=== PATIENT | female | born 1935 | race Caucasian/White ===

== ENCOUNTER → 2017-02-06 | Outpatient (CLI) | payer MEDICARE, OTHER ==
[~2017-02-06] MED LIST: AMARYL4 MG PO; ATACAND 16M16 MG/TAB PO; CALCIUM + D 6001 TAB PO; CALCIUM 600 PLU1 TAB PO; CARVEDILOL25 MG PO; CHROMIUM PICO200 MC2 PO; CINNAMON500 MG PO; DIGOXIN0.125 MG PO; FUROSEMIDE20 MG PO; GLUCOPHAGE850 MG/TAB PO; KLOR-CON M2020 MEQ PO; LEVOTHYROXIN0.075 MG PO; METFORMIN HCL500 MG PO; MOTRIN 200200 MG/TAB PO; NEXIUM PO; NORCO 325 MG-7.1 TAB PO; PRADAXA 150MG150 MG PO; PRADAXA150 MG PO; SIMVASTATIN20 MG PO; ULTRAM 50MG TAB50 MG PO; VITAMIN B12500 MCG PO
== END ==
LOC: MHCPAIN 11:42
DX: G89.29 Other chronic pain (principal); M25.562 Pain in left knee; M70.60 Trochanteric bursitis, unspecified hip; I48.91 Unspecified atrial fibrillation; Z79.01 Long term (current) use of anticoagulants
CPT/HCPCS: G0463

== ENCOUNTER → 2017-02-12 | Outpatient (CLI) | payer MEDICARE, OTHER | LOC: MHCPAIN 07:53 | DX: M70.61 Trochanteric bursitis, right hip (principal); M17.11 Unilateral primary osteoarthritis, right knee | CPT/HCPCS: J1040; Q9967 ==

== ENCOUNTER → 2018-10-27 | Outpatient (CLI) | payer MEDICARE, OTHER ==
[~2018-10-27] MED LIST changes: +ATACAND8 MG PO; +LEXAPRO 10MG10 MG PO; +MULTI VITAMINS1 TAB PO; +PROTONIX 40MG T40 MG PO; +SYNTHROID0.088 MG/T PO
== END ==
LOC: COL.RAD 12:18
DX: R51 Headache (principal)
CPT/HCPCS: A9585

== ENCOUNTER → 2023-03-25 | Outpatient (CLI) | payer MEDICARE, OTHER | LOC: COL.RAD 09:27 | DX: M51.36 Other intervertebral disc degeneration, lumbar region (principal); M48.061 Spinal stenosis, lumbar region without neurogenic claudication; M51.37 Other intervertebral disc degeneration, lumbosacral region; M43.16 Spondylolisthesis, lumbar region; M47.816 Spondylosis without myelopathy or radiculopathy, lumbar region ==